=== PATIENT | female | born 1960 | race Caucasian/White ===

== ENCOUNTER → 2022-10-18 | Outpatient (CLI) | payer MEDICARE, MEDICAID ==
[~2022-10-18] MED LIST: CALC-176 PO; CIDA500T2 PO; DULO1CAP5; FURO20TA2; GABA-282; HYDR-3716; HYDR200T3; LEVO175T2; LISI5TAB11; VITA500045 PO
== END ==
LOC: M PAIN 08:00
PROVIDERS: ATTEND Nurse Practitioner Family
DX: M54.42 Lumbago with sciatica, left side (principal); G89.29 Other chronic pain; R73.03 Prediabetes; I10 Essential (primary) hypertension; M06.9 Rheumatoid arthritis, unspecified; K21.9 Gastro-esophageal reflux disease without esophagitis; M79.7 Fibromyalgia; J44.9 Chronic obstructive pulmonary disease, unspecified; G47.30 Sleep apnea, unspecified; E03.9 Hypothyroidism, unspecified; Z86.59 Personal history of other mental and behavioral disorders; Z87.891 Personal history of nicotine dependence; Z88.1 Allergy status to other antibiotic agents; Z88.6 Allergy status to analgesic agent; Z88.8 Allergy status to other drugs, medicaments and biological substances; E66.01 Morbid (severe) obesity due to excess calories; Z68.44 Body mass index [BMI] 60.0-69.9, adult; Z79.890 Hormone replacement therapy; Z79.899 Other long term (current) drug therapy

== ENCOUNTER → 2022-11-25 | Outpatient (CLI) | payer MEDICARE, MEDICAID | LOC: M PAIN 08:45 | PROVIDERS: ATTEND Nurse Practitioner Family | DX: M47.816 Spondylosis without myelopathy or radiculopathy, lumbar region (principal); M46.1 Sacroiliitis, not elsewhere classified; G89.29 Other chronic pain; I10 Essential (primary) hypertension; M06.9 Rheumatoid arthritis, unspecified; K21.9 Gastro-esophageal reflux disease without esophagitis; M79.7 Fibromyalgia; J44.9 Chronic obstructive pulmonary disease, unspecified; G47.30 Sleep apnea, unspecified; E03.9 Hypothyroidism, unspecified; Z86.59 Personal history of other mental and behavioral disorders; Z87.891 Personal history of nicotine dependence; Z88.1 Allergy status to other antibiotic agents; Z88.6 Allergy status to analgesic agent; Z88.8 Allergy status to other drugs, medicaments and biological substances; E66.01 Morbid (severe) obesity due to excess calories; Z68.44 Body mass index [BMI] 60.0-69.9, adult; Z79.51 Long term (current) use of inhaled steroids; Z79.890 Hormone replacement therapy; Z79.899 Other long term (current) drug therapy ==

== ENCOUNTER → 2023-01-30 | Outpatient (CLI) | payer MEDICARE, MEDICAID ==
[~2023-01-30] MED LIST changes: -HYDR200T3; +HYDR200T46
== END ==
LOC: M PLARAD 10:16
PROVIDERS: ATTEND Nurse Practitioner Family
DX: M54.40 Lumbago with sciatica, unspecified side (principal); M46.1 Sacroiliitis, not elsewhere classified

== ENCOUNTER → 2023-02-13 | Outpatient (CLI) | payer MEDICARE, MEDICAID | LOC: M PAIN 09:15 | PROVIDERS: ATTEND Nurse Practitioner Family | DX: M79.10 Myalgia, unspecified site (principal); G89.29 Other chronic pain; G47.30 Sleep apnea, unspecified; I10 Essential (primary) hypertension; M06.9 Rheumatoid arthritis, unspecified; K21.9 Gastro-esophageal reflux disease without esophagitis; M79.7 Fibromyalgia; J44.9 Chronic obstructive pulmonary disease, unspecified; E03.9 Hypothyroidism, unspecified; Z87.891 Personal history of nicotine dependence; Z88.1 Allergy status to other antibiotic agents; Z88.6 Allergy status to analgesic agent; Z88.8 Allergy status to other drugs, medicaments and biological substances; E66.01 Morbid (severe) obesity due to excess calories; Z68.41 Body mass index [BMI] 40.0-44.9, adult; Z79.890 Hormone replacement therapy; Z79.899 Other long term (current) drug therapy ==

== ENCOUNTER → 2023-02-19 | Outpatient (CLI) | payer MEDICARE, MEDICAID ==
[2023-02-19 13:07] LABS: URIC ACID 6.4 MG/DL (3.1-7.8)
[2023-02-19 13:08] LABS: BASO # 0.1 10^3/uL (0.0-0.2); BASO % 0.7 % (0.0-1.0); EOS # 0.2 10^3/uL (0.0-0.5); EOS % 2.3 % (0.0-3.0); HEMATOCRIT 41.9 % (36.0-47.0); HEMOGLOBIN 13.3 g/dl (12.0-15.5); LYMPH # 2.2 10^3/uL (1.5-5.0); LYMPH % 26.7 % (24.0-44.0); MEAN CORPUSCULAR HEMOGLOBIN 27.9 pg (27.0-33.0); MEAN CORPUSCULAR HGB CONC 31.7 g/dl (32.0-36.5); MEAN CORPUSCULAR VOLUME 87.8 fl (80.0-96.0); MONO # 0.8 10^3/uL (0.0-0.8); MONO % 9.3 % (2.0-8.0); NEUTROPHILS % 60.6 % (36.0-66.0); PLATELET COUNT, AUTOMATED 308 10^3/uL (150-450); RED BLOOD COUNT 4.77 10^6/uL (4.00-5.40); WHITE BLOOD COUNT 8.3 10^3/uL (4.0-10.0)
[2023-02-19 13:10] LABS: C REACTIVE PROTEIN QUANTITATIV 0.6 MG/DL (<1.0)
[2023-02-19 13:11] LABS: BILIRUBIN,TOTAL 0.6 MG/DL (0.3-1.2); CALCIUM LEVEL 9.7 MG/DL (8.3-10.6); CREATININE FOR GFR 1.01 MG/DL (0.55-1.30); GLOMERULAR FILTRATION RATE 58.7 (>45); POTASSIUM SERUM 4.7 MMOL/L (3.5-5.1); RHEUMATOID FACTOR QUANT 4.7 IU/ML (<14)
[2023-02-19 13:33] LABS: ERYTHROCYTE SEDIMENTATION RATE 42 mm/hr (0-30)
[2023-02-20 10:29] LABS: DRVV SCREEN 38.7 SECONDS
[2023-02-20 10:33] LABS: PTT LUPUS TYPE ANTICOAG SCREEN 0.98 (0-1.20)
[2023-02-24 13:08] LABS: ANA (HEP2) Negative (.); ANTI DS-DNA AB Negative (Negative)
== END ==
LOC: M PLALAB 09:01
PROVIDERS: ATTEND Nurse Practitioner Family
DX: M35.3 Polymyalgia rheumatica (principal); L40.53 Psoriatic spondylitis

== ENCOUNTER → 2023-03-12 | Outpatient (CLI) | payer MEDICARE, MEDICAID | LOC: M PLAIMG 14:42 | PROVIDERS: ATTEND Physician Assistant | DX: M85.88 Other specified disorders of bone density and structure, other site (principal); M47.816 Spondylosis without myelopathy or radiculopathy, lumbar region ==

== ENCOUNTER → 2023-03-17 | Outpatient (CLI) | payer MEDICARE, MEDICAID | LOC: M PAIN 08:30 | PROVIDERS: ATTEND Anesthesiology | DX: M79.18 Myalgia, other site (principal); G89.29 Other chronic pain; G47.30 Sleep apnea, unspecified; I10 Essential (primary) hypertension; M06.9 Rheumatoid arthritis, unspecified; K21.9 Gastro-esophageal reflux disease without esophagitis; M79.7 Fibromyalgia; J44.9 Chronic obstructive pulmonary disease, unspecified; E03.9 Hypothyroidism, unspecified; Z86.59 Personal history of other mental and behavioral disorders; Z87.891 Personal history of nicotine dependence; Z88.1 Allergy status to other antibiotic agents; Z88.6 Allergy status to analgesic agent; Z88.8 Allergy status to other drugs, medicaments and biological substances; E66.01 Morbid (severe) obesity due to excess calories; Z68.41 Body mass index [BMI] 40.0-44.9, adult; Z79.890 Hormone replacement therapy; Z79.899 Other long term (current) drug therapy | CPT/HCPCS: 20552; J0665 ==

== ENCOUNTER → 2023-03-27 | Outpatient (CLI) | payer MEDICARE, MEDICAID | LOC: M WHC 13:27 | PROVIDERS: ATTEND Physician Assistant | DX: M81.0 Age-related osteoporosis without current pathological fracture (principal) ==

== ENCOUNTER → 2023-04-17 | Outpatient (CLI) | payer MEDICARE, MEDICAID | LOC: M PAIN 09:30 | PROVIDERS: ATTEND Nurse Practitioner Family | DX: M47.816 Spondylosis without myelopathy or radiculopathy, lumbar region (principal); M79.10 Myalgia, unspecified site; G89.29 Other chronic pain; Z80.1 Family history of malignant neoplasm of trachea, bronchus and lung; Z87.891 Personal history of nicotine dependence; Z88.6 Allergy status to analgesic agent; Z88.8 Allergy status to other drugs, medicaments and biological substances; E66.01 Morbid (severe) obesity due to excess calories; Z68.41 Body mass index [BMI] 40.0-44.9, adult; Z79.899 Other long term (current) drug therapy ==

== ENCOUNTER → 2023-04-21 | Outpatient (CLI) | payer MEDICARE, MEDICAID | LOC: M PAIN 08:30 | PROVIDERS: ATTEND Anesthesiology | DX: M47.816 Spondylosis without myelopathy or radiculopathy, lumbar region (principal); G89.29 Other chronic pain; Z80.1 Family history of malignant neoplasm of trachea, bronchus and lung; Z87.891 Personal history of nicotine dependence; Z88.6 Allergy status to analgesic agent; Z88.8 Allergy status to other drugs, medicaments and biological substances; E66.01 Morbid (severe) obesity due to excess calories; Z68.41 Body mass index [BMI] 40.0-44.9, adult; Z79.899 Other long term (current) drug therapy | CPT/HCPCS: 76000; G0463 ==

== ENCOUNTER 2023-05-01 16:39 | Emergency (ER) | payer MEDICARE, MEDICAID ==
[~2023-05-01] VITALS: Ht 167.6 cm; Wt 124.2 kg
[2023-05-01] MEDS ORDERED: IPRATROPIUM 0.5MG/ALBUTEROL 2.5MG INH SOL UD 3ML (DUONEB) NEB ONE (17:25)
[2023-05-01] MEDS ORDERED: CYAN1000VL (18:16)
[2023-05-01] MEDS ORDERED: TORS20TA2 (18:16)
[2023-05-01 18:21] LABS: VENOUS BASE EXCESS 3.2 (-2.0-2.0); VENOUS HCO3 28.3 MMOL/L (23.0-27.0); VENOUS O2 SATURATION 80.4 % (60.0-80.0); VENOUS PARTIAL PRESSURE CO2 44.7 mmHg (38.0-50.0); VENOUS PARTIAL PRESSURE O2 41.8 mmHg (30.0-50.0); VENOUS PH 7.419 UNITS (7.330-7.430); VENOUS STANDARD HCO3 26.9 MMOL/L; VENOUS TOTAL CO2 29.7 MMOL/L (24.0-28.0)
[2023-05-01 18:38] LABS: BASO # 0.1 10^3/uL (0.0-0.2); BASO % 0.5 % (0.0-1.0); EOS # 0.2 10^3/uL (0.0-0.5); EOS % 2.1 % (0.0-3.0); HEMATOCRIT 41.9 % (36.0-47.0); HEMOGLOBIN 13.4 g/dl (12.0-15.5); LYMPH # 2.3 10^3/uL (1.5-5.0); LYMPH % 22.1 % (24.0-44.0); MEAN CORPUSCULAR HEMOGLOBIN 28.8 pg (27.0-33.0); MEAN CORPUSCULAR VOLUME 89.9 fl (80.0-96.0); MONO # 0.8 10^3/uL (0.0-0.8); MONO % 8.1 % (2.0-8.0); NEUTROPHILS % 66.9 % (36.0-66.0); PLATELET COUNT, AUTOMATED 349 10^3/uL (150-450); RED BLOOD COUNT 4.66 10^6/uL (4.00-5.40); WHITE BLOOD COUNT 10.4 10^3/uL (4.0-10.0)
[2023-05-01 19:00] LABS: CPK CREATINE PHOSPHOKINASE 127 U/L (34-145)
[2023-05-01 19:01] LABS: ALBUMIN 4.2 G/DL (3.2-5.2); ALKALINE PHOSPHATASE 170 U/L (46-116); ALT/SGPT 37 U/L (7.0-40); AST/SGOT 26 U/L (<34); BILIRUBIN,DIRECT 0.2 MG/DL (<0.4); BILIRUBIN,TOTAL 0.6 MG/DL (0.3-1.2); BLOOD UREA NITROGEN 17 MG/DL (9-23); CALCIUM LEVEL 10.2 MG/DL (8.3-10.6); CARBON DIOXIDE LEVEL 29 MMOL/L (20-31); CHLORIDE LEVEL 101 MMOL/L (98-107); CK-MB VALUE MASS < 1.0 NG/ML (<3.6); CREATININE FOR GFR 0.96 MG/DL (0.55-1.30); GLOMERULAR FILTRATION RATE > 60.0 (>45); GLUCOSE, FASTING 96 MG/DL (74-106); MB/CK RELATIVE INDEX 0.78 (< OR =4); SODIUM LEVEL 141 MMOL/L (136-145); TOTAL PROTEIN 7.4 G/DL (5.7-8.2)
[2023-05-01 19:02] LABS: THYROID STIMULATING HORMONE 1.107 uIU/ML (0.55-4.78); THYROXINE (T4) 12.6 UG/DL (4.5-10.9)
[2023-05-01] MEDS ORDERED: ISOVUE-370 76% 100ML VIAL As Ordered ONE (19:02)
[2023-05-01 20:33] LABS: MB/CK RELATIVE INDEX 0.97 (< OR =4)
[2023-05-01 21:38] VITALS: BP 163/83; TEMP 98; O2SAT 94
== END 2023-05-01 21:40 | disposition home or self-care (01) ==
LOC: M ED 16:39
DX: I49.3 Ventricular premature depolarization (principal); I10 Essential (primary) hypertension; G47.33 Obstructive sleep apnea (adult) (pediatric); J45.909 Unspecified asthma, uncomplicated; J44.9 Chronic obstructive pulmonary disease, unspecified; M54.50 Low back pain, unspecified; Z87.891 Personal history of nicotine dependence; Z88.1 Allergy status to other antibiotic agents; Z88.6 Allergy status to analgesic agent; Z88.8 Allergy status to other drugs, medicaments and biological substances; Z79.811 Long term (current) use of aromatase inhibitors; Z79.891 Long term (current) use of opiate analgesic; Z79.899 Other long term (current) drug therapy
CPT/HCPCS: 36415; 71045; 71275; 80048; 80076; 82550; 82553; 82803; 83735; 83880; 84436; 84443; 84484; 85025; 87486; 87581; 87633; 87798; 93005; 93041; 94640; 94760; 99284; Q9967

== ENCOUNTER → 2023-05-06 | Outpatient (CLI) | payer MEDICARE, MEDICAID ==
[~2023-05-06] MED LIST changes: +CYAN1000VL; +TORS20TA2
[2023-05-06 14:37] LABS: ALBUMIN 3.9 G/DL (3.2-5.2); BLOOD UREA NITROGEN 18 MG/DL (9-23); CALCIUM LEVEL 9.5 MG/DL (8.3-10.6); CARBON DIOXIDE LEVEL 30 MMOL/L (20-31); CHLORIDE LEVEL 103 MMOL/L (98-107); CREATININE FOR GFR 0.87 MG/DL (0.55-1.30); GLOMERULAR FILTRATION RATE > 60.0 (>45); GLUCOSE, FASTING 115 MG/DL (74-106); MAGNESIUM LEVEL 2.1 MG/DL (1.8-2.4); PHOSPHORUS LEVEL 3.3 MG/DL (2.4-5.1); POTASSIUM SERUM 4.3 MMOL/L (3.5-5.1); SODIUM LEVEL 142 MMOL/L (136-145)
[2023-05-06 14:38] LABS: FERRITIN 23.4 NG/ML (7.3-270.7); THYROID STIMULATING HORMONE 1.741 uIU/ML (0.55-4.78)
[2023-05-06 14:39] LABS: FREE T4 1.11 NG/DL (0.89-1.76); TOTAL 25(OH) VITAMIN D 34.7 NG/ML (20.0-100.0); VITAMIN B12 LEVEL 813 PG/ML (211-911)
== END ==
LOC: M PLALAB 11:28
PROVIDERS: ATTEND Physician Assistant
DX: R00.2 Palpitations (principal); R07.89 Other chest pain; R06.02 Shortness of breath; J44.9 Chronic obstructive pulmonary disease, unspecified; Z79.899 Other long term (current) drug therapy; Z86.39 Personal history of other endocrine, nutritional and metabolic disease

== ENCOUNTER → 2023-07-11 | Outpatient (CLI) | payer MEDICARE, MEDICAID ==
[~2023-07-11] MED LIST changes: +ISOVUE-M 300 61% 15ML VIAL As Ordered ONE; +LIDOCAINE 1% SDV 30ML VIAL As Ordered ONE
== END ==
LOC: M PAIN 08:30
PROVIDERS: ATTEND Anesthesiology
DX: M47.816 Spondylosis without myelopathy or radiculopathy, lumbar region (principal); G89.29 Other chronic pain; M54.50 Low back pain, unspecified; I10 Essential (primary) hypertension; M06.9 Rheumatoid arthritis, unspecified; K21.9 Gastro-esophageal reflux disease without esophagitis; M79.7 Fibromyalgia; J44.9 Chronic obstructive pulmonary disease, unspecified; E03.9 Hypothyroidism, unspecified; Z87.891 Personal history of nicotine dependence; Z79.890 Hormone replacement therapy; Z79.899 Other long term (current) drug therapy; Z88.6 Allergy status to analgesic agent; Z88.8 Allergy status to other drugs, medicaments and biological substances
CPT/HCPCS: 64493; 64494; J0665; Q9967

== ENCOUNTER → 2023-08-01 | Outpatient (CLI) | payer MEDICARE, MEDICAID ==
[~2023-08-01] MED LIST changes: -ISOVUE-M 300 61% 15ML VIAL As Ordered ONE; -LIDOCAINE 1% SDV 30ML VIAL As Ordered ONE
== END ==
LOC: M PAIN 17:00
PROVIDERS: ATTEND Nurse Practitioner Family
DX: M47.816 Spondylosis without myelopathy or radiculopathy, lumbar region (principal); M47.817 Spondylosis without myelopathy or radiculopathy, lumbosacral region; M54.6 Pain in thoracic spine; G89.29 Other chronic pain; I10 Essential (primary) hypertension; M06.9 Rheumatoid arthritis, unspecified; K21.9 Gastro-esophageal reflux disease without esophagitis; M79.7 Fibromyalgia; F41.9 Anxiety disorder, unspecified; F32.A Depression, unspecified; J44.9 Chronic obstructive pulmonary disease, unspecified; J45.909 Unspecified asthma, uncomplicated; Z87.891 Personal history of nicotine dependence; Z79.899 Other long term (current) drug therapy; Z88.6 Allergy status to analgesic agent; Z88.8 Allergy status to other drugs, medicaments and biological substances

== ENCOUNTER → 2023-09-01 | Outpatient (CLI) | payer MEDICARE, MEDICAID ==
[2023-09-01 11:15] LABS: BASO % 0.5 % (0.0-1.0); EOS # 0.2 10^3/uL (0.0-0.5); EOS % 2.2 % (0.0-3.0); HEMATOCRIT 44.3 % (36.0-47.0); LYMPH # 2.2 10^3/uL (1.5-5.0); MEAN CORPUSCULAR HEMOGLOBIN 28.2 pg (27.0-33.0); MEAN CORPUSCULAR HGB CONC 31.6 g/dl (32.0-36.5); MEAN CORPUSCULAR VOLUME 89.3 fl (80.0-96.0); MONO # 0.6 10^3/uL (0.0-0.8); MONO % 7.3 % (2.0-8.0); NEUTROPHILS # 5.3 10^3/uL (1.5-8.5); NEUTROPHILS % 63.8 % (36.0-66.0); PLATELET COUNT, AUTOMATED 336 10^3/uL (150-450); RED BLOOD COUNT 4.96 10^6/uL (4.00-5.40); WHITE BLOOD COUNT 8.4 10^3/uL (4.0-10.0)
[2023-09-01 11:25] LABS: ERYTHROCYTE SEDIMENTATION RATE 47 mm/hr (0-30)
[2023-09-01 11:45] LABS: URIC ACID 5.6 MG/DL (3.1-7.8)
[2023-09-01 11:48] LABS: ALBUMIN 3.9 G/DL (3.2-5.2); ALKALINE PHOSPHATASE 144 U/L (46-116); ALT/SGPT 26 U/L (7.0-40); AST/SGOT 20 U/L (<34); BILIRUBIN,TOTAL 0.6 MG/DL (0.3-1.2); BLOOD UREA NITROGEN 18 MG/DL (9-23); CALCIUM LEVEL 9.8 MG/DL (8.3-10.6); CARBON DIOXIDE LEVEL 30 MMOL/L (20-31); CHLORIDE LEVEL 107 MMOL/L (98-107); CHOLESTEROL LEVEL 165 MG/DL (<200); CHOLESTEROL RISK RATIO 3.21 (<5); CREATININE FOR GFR 0.91 MG/DL (0.55-1.30); GLOMERULAR FILTRATION RATE > 60.0 (>45); GLUCOSE, FASTING 110 MG/DL (74-106); HDL CHOLESTEROL 51.3 MG/DL (>40); LDL CHOLESTEROL 85.7 MG/DL (<100); NON-HDL-C 113.7 MG/DL; POTASSIUM SERUM 4.1 MMOL/L (3.5-5.1); SODIUM LEVEL 141 MMOL/L (136-145); TRIGLYCERIDES LEVEL 140 MG/DL (<150)
== END ==
LOC: M LAB 10:10
PROVIDERS: ATTEND Physician Assistant
DX: M47.814 Spondylosis without myelopathy or radiculopathy, thoracic region (principal); E78.5 Hyperlipidemia, unspecified; L40.50 Arthropathic psoriasis, unspecified; Z13.1 Encounter for screening for diabetes mellitus; Z79.899 Other long term (current) drug therapy

== ENCOUNTER → 2023-09-01 | Outpatient (CLI) | payer MEDICARE, MEDICAID | LOC: M RAD 10:11 | PROVIDERS: ATTEND Nurse Practitioner Family | DX: M47.814 Spondylosis without myelopathy or radiculopathy, thoracic region (principal) ==

== ENCOUNTER → 2023-09-26 | Outpatient (CLI) | payer MEDICARE, MEDICAID ==
[~2023-09-26] MED LIST changes: +ISOVUE-M 300 61% 15ML VIAL As Ordered ONE; +LIDOCAINE 1% SDV 30ML VIAL As Ordered ONE
== END ==
LOC: M PAIN 13:00
PROVIDERS: ATTEND Anesthesiology
DX: M47.816 Spondylosis without myelopathy or radiculopathy, lumbar region (principal)
CPT/HCPCS: 64493; 64494; J0665; Q9967

== ENCOUNTER → 2023-10-28 | Outpatient (CLI) | payer MEDICARE, MEDICAID ==
[~2023-10-28] MED LIST changes: -ISOVUE-M 300 61% 15ML VIAL As Ordered ONE; -LIDOCAINE 1% SDV 30ML VIAL As Ordered ONE
== END ==
LOC: M CARPUL 07:44
PROVIDERS: ATTEND Nurse Practitioner Adult Health
DX: R06.02 Shortness of breath (principal)

== ENCOUNTER → 2023-10-31 | Outpatient (CLI) | payer MEDICARE, MEDICAID | LOC: M PAIN 11:45 | PROVIDERS: ATTEND Nurse Practitioner Family | DX: M47.817 Spondylosis without myelopathy or radiculopathy, lumbosacral region (principal); M47.816 Spondylosis without myelopathy or radiculopathy, lumbar region; G89.29 Other chronic pain; M54.50 Low back pain, unspecified; I10 Essential (primary) hypertension; M06.9 Rheumatoid arthritis, unspecified; K21.9 Gastro-esophageal reflux disease without esophagitis; M79.7 Fibromyalgia; F41.9 Anxiety disorder, unspecified; F32.A Depression, unspecified; K76.0 Fatty (change of) liver, not elsewhere classified; R91.8 Other nonspecific abnormal finding of lung field; J44.9 Chronic obstructive pulmonary disease, unspecified; E03.9 Hypothyroidism, unspecified; J45.909 Unspecified asthma, uncomplicated; Z87.891 Personal history of nicotine dependence; Z79.890 Hormone replacement therapy; Z79.899 Other long term (current) drug therapy; Z88.6 Allergy status to analgesic agent; Z88.8 Allergy status to other drugs, medicaments and biological substances ==

== ENCOUNTER → 2023-12-06 | Outpatient (CLI) | payer MEDICAID, MEDICARE ==
[2023-12-06 10:07] LABS: APPEARANCE, URINE HAZY (CLEAR); BACTERIA, URINE AUTO 1+ (NEGATIVE); BILIRUBIN, URINE AUTO NEGATIVE (NEGATIVE); BLOOD, URINE BLOOD NEGATIVE (NEGATIVE); COLOR, URINE AMBER (YELLOW); GLUCOSE, URINE (UA) AUTO NEGATIVE (NEGATIVE); KETONE, URINE AUTO NEGATIVE (NEGATIVE); LEUKOCYTE ESTERASE, URINE AUTO 1+ (NEGATIVE); MUCUS, URINE SMALL (NEGATIVE); NITRITE, URINE AUTO NEGATIVE (NEGATIVE); PROTEIN, URINE AUTO 1+ mg/dL (NEGATIVE); RBC, URINE AUTO 1 /HPF (0-3); SPECIFIC GRAVITY URINE AUTO 1.027 (1.002-1.035); SQUAMOUS EPITHELIAL CELL UR AU 8 /HPF (0-6); WBC, URINE AUTO 5 /HPF (0-3)
[2023-12-06 10:09] LABS: BASO % 0.7 % (0.0-1.0); EOS # 0.2 10^3/uL (0.0-0.5); EOS % 3.3 % (0.0-3.0); HEMATOCRIT 39.7 % (36.0-47.0); HEMOGLOBIN 12.7 g/dl (12.0-15.5); LYMPH # 1.5 10^3/uL (1.5-5.0); LYMPH % 25.4 % (24.0-44.0); MEAN CORPUSCULAR HEMOGLOBIN 29.3 pg (27.0-33.0); MEAN CORPUSCULAR VOLUME 91.5 fl (80.0-96.0); MONO # 0.6 10^3/uL (0.0-0.8); MONO % 10.1 % (2.0-8.0); NEUTROPHILS # 3.5 10^3/uL (1.5-8.5); NEUTROPHILS % 60.3 % (36.0-66.0); PLATELET COUNT, AUTOMATED 282 10^3/uL (150-450); RED BLOOD COUNT 4.34 10^6/uL (4.00-5.40); WHITE BLOOD COUNT 5.8 10^3/uL (4.0-10.0)
[2023-12-06 10:33] LABS: FREE T4 1.04 NG/DL (0.89-1.76)
[2023-12-06 10:34] LABS: ALBUMIN 3.4 G/DL (3.2-5.2); BILIRUBIN,TOTAL 0.7 MG/DL (0.3-1.2); CALCIUM LEVEL 9.3 MG/DL (8.3-10.6); CHOLESTEROL RISK RATIO 3.2 (<5); CREATININE FOR GFR 0.99 MG/DL (0.55-1.30); GLOMERULAR FILTRATION RATE 59.9 (>45); HDL CHOLESTEROL 45.5 MG/DL (>40); LDL CHOLESTEROL 66.5 MG/DL (<100); NON-HDL-C 100.5 MG/DL; POTASSIUM SERUM 4.3 MMOL/L (3.5-5.1); THYROID STIMULATING HORMONE 0.626 uIU/ML (0.55-4.78); TOTAL PROTEIN 6.1 G/DL (5.7-8.2)
== END ==
LOC: M LAB 09:10
PROVIDERS: ATTEND Internal Medicine
DX: E03.9 Hypothyroidism, unspecified (principal); E78.00 Pure hypercholesterolemia, unspecified

== ENCOUNTER → 2023-12-30 | Outpatient (CLI) | payer MEDICARE, MEDICAID ==
[~2023-12-30] MED LIST changes: +METHACHOLINE KIT (6 VIAL.NEB PREMIX) INH ONE
== END ==
LOC: M CARPUL 12-11 09:28
PROVIDERS: ATTEND Nurse Practitioner Adult Health
DX: R06.02 Shortness of breath (principal)
CPT/HCPCS: 94070; 95070; J7674

== ENCOUNTER 2024-03-12 14:48 | Emergency (ER) | payer MEDICARE, MEDICAID ==
[~2024-03-12] VITALS: Ht 165.1 cm; Wt 127.3 kg
[~2024-03-12 14:48] MED LIST changes: -LIDOCAINE 1% SDV 30ML VIAL As Ordered ONE; -NORCO, ANEXSIA 5/325MG TABLET (HYDROcodone/ACETAMINOPHEN) As Ordered ONE; -dexAMETHasone 10MG/1ML VIAL PRES.FREE As Ordered ONE
[2024-03-12 15:14] VITALS: TEMP 98.6
[2024-03-12 15:42] LABS: BASO # 0.1 10^3/uL (0.0-0.2); BASO % 0.6 % (0.0-1.0); EOS # 0.2 10^3/uL (0.0-0.5); EOS % 2.1 % (0.0-3.0); HEMOGLOBIN 13.1 g/dl (12.0-15.5); LYMPH # 1.6 10^3/uL (1.5-5.0); LYMPH % 17.5 % (24.0-44.0); MEAN CORPUSCULAR HEMOGLOBIN 28.5 pg (27.0-33.0); MEAN CORPUSCULAR VOLUME 89.3 fl (80.0-96.0); MONO # 0.6 10^3/uL (0.0-0.8); NEUTROPHILS # 6.6 10^3/uL (1.5-8.5); NEUTROPHILS % 72.5 % (36.0-66.0); PLATELET COUNT, AUTOMATED 303 10^3/uL (150-450); RED BLOOD COUNT 4.59 10^6/uL (4.00-5.40); WHITE BLOOD COUNT 9.1 10^3/uL (4.0-10.0)
[2024-03-12 15:55] LABS: INR 0.99; PARTIAL THROMBOPLASTIN TIME 23.8 SECONDS (24.8-34.2); PROTHROMBIN TIME 12.8 SECONDS (12.5-14.5)
[2024-03-12 16:02] LABS: ALBUMIN 3.6 G/DL (3.2-5.2); ALKALINE PHOSPHATASE 176 U/L (46-116); ALT/SGPT 23 U/L (7.0-40); AST/SGOT 24 U/L (<34); BILIRUBIN,DIRECT 0.2 MG/DL (<0.4); BILIRUBIN,TOTAL 0.6 MG/DL (0.3-1.2); BLOOD UREA NITROGEN 19 MG/DL (9-23); CARBON DIOXIDE LEVEL 28 MMOL/L (20-31); CHLORIDE LEVEL 105 MMOL/L (98-107); CK-MB VALUE MASS < 1.0 NG/ML (<3.6); CREATININE FOR GFR 0.88 MG/DL (0.55-1.30); GLOMERULAR FILTRATION RATE > 60.0 (>45); GLUCOSE, FASTING 175 MG/DL (74-106); POTASSIUM SERUM 4.2 MMOL/L (3.5-5.1); SODIUM LEVEL 138 MMOL/L (136-145); TOTAL PROTEIN 6.6 G/DL (5.7-8.2)
[2024-03-12 16:03] LABS: THYROID STIMULATING HORMONE 2.861 uIU/ML (0.55-4.78)
[2024-03-12 16:04] LABS: FREE T4 1.07 NG/DL (0.89-1.76)
[2024-03-12 16:23] LABS: CPK CREATINE PHOSPHOKINASE 131 U/L (34-145); MB/CK RELATIVE INDEX 0.76 (< OR =4)
[2024-03-12 17:02] LABS: CPK CREATINE PHOSPHOKINASE 123 U/L (34-145)
[2024-03-12 17:06] LABS: CK-MB VALUE MASS < 1.0 NG/ML (<3.6); MB/CK RELATIVE INDEX 0.81 (< OR =4)
[2024-03-12 17:45] VITALS: BP 169/73; O2SAT 93
== END 2024-03-12 18:14 | disposition home or self-care (01) ==
LOC: M ED 14:48
DX: R55 Syncope and collapse (principal); I45.81 Long QT syndrome; I49.3 Ventricular premature depolarization; I10 Essential (primary) hypertension; M54.50 Low back pain, unspecified; F41.9 Anxiety disorder, unspecified; F32.A Depression, unspecified; K76.0 Fatty (change of) liver, not elsewhere classified; R91.1 Solitary pulmonary nodule; J44.9 Chronic obstructive pulmonary disease, unspecified; G47.33 Obstructive sleep apnea (adult) (pediatric); M79.7 Fibromyalgia; K21.9 Gastro-esophageal reflux disease without esophagitis; Z87.891 Personal history of nicotine dependence; Z88.1 Allergy status to other antibiotic agents; Z88.6 Allergy status to analgesic agent; Z88.8 Allergy status to other drugs, medicaments and biological substances; Z79.811 Long term (current) use of aromatase inhibitors; Z79.899 Other long term (current) drug therapy; M47.816 Spondylosis without myelopathy or radiculopathy, lumbar region; G89.29 Other chronic pain
CPT/HCPCS: 36415; 64635; 71045; 80048; 80076; 82550; 82553; 84439; 84443; 84484; 85025; 85610; 85730; 93005; 93041; 94760; 99285; J0665; J1100

== ENCOUNTER → 2024-03-12 | Outpatient (CLI) | payer MEDICARE, MEDICAID ==
[~2024-03-12] MED LIST changes: +LIDOCAINE 1% SDV 30ML VIAL As Ordered ONE; -METHACHOLINE KIT (6 VIAL.NEB PREMIX) INH ONE; +NORCO, ANEXSIA 5/325MG TABLET (HYDROcodone/ACETAMINOPHEN) As Ordered ONE; +dexAMETHasone 10MG/1ML VIAL PRES.FREE As Ordered ONE
== END ==
LOC: M PAIN 11:00
PROVIDERS: ATTEND Anesthesiology
DX: M47.816 Spondylosis without myelopathy or radiculopathy, lumbar region (principal); M54.50 Low back pain, unspecified; G89.29 Other chronic pain; I10 Essential (primary) hypertension; M06.9 Rheumatoid arthritis, unspecified; K21.9 Gastro-esophageal reflux disease without esophagitis; M79.7 Fibromyalgia; F41.9 Anxiety disorder, unspecified; F32.A Depression, unspecified; K76.0 Fatty (change of) liver, not elsewhere classified; J44.9 Chronic obstructive pulmonary disease, unspecified; G47.30 Sleep apnea, unspecified; E03.9 Hypothyroidism, unspecified; J45.909 Unspecified asthma, uncomplicated; Z87.891 Personal history of nicotine dependence; Z79.890 Hormone replacement therapy; Z79.899 Other long term (current) drug therapy; Z88.6 Allergy status to analgesic agent; Z88.8 Allergy status to other drugs, medicaments and biological substances

== ENCOUNTER → 2024-03-25 | Outpatient (CLI) | payer MEDICARE, MEDICAID | LOC: M PAIN 14:30 | PROVIDERS: ATTEND Anesthesiology | DX: M47.816 Spondylosis without myelopathy or radiculopathy, lumbar region (principal); G89.29 Other chronic pain; M54.50 Low back pain, unspecified; I10 Essential (primary) hypertension; M06.9 Rheumatoid arthritis, unspecified; K21.9 Gastro-esophageal reflux disease without esophagitis; M79.7 Fibromyalgia; F41.9 Anxiety disorder, unspecified; F32.A Depression, unspecified; M19.90 Unspecified osteoarthritis, unspecified site; K76.0 Fatty (change of) liver, not elsewhere classified; J44.9 Chronic obstructive pulmonary disease, unspecified; R91.8 Other nonspecific abnormal finding of lung field; G47.30 Sleep apnea, unspecified; E03.9 Hypothyroidism, unspecified; J45.909 Unspecified asthma, uncomplicated; Z87.891 Personal history of nicotine dependence; Z79.890 Hormone replacement therapy; Z79.899 Other long term (current) drug therapy; Z88.6 Allergy status to analgesic agent; Z88.8 Allergy status to other drugs, medicaments and biological substances ==

== ENCOUNTER → 2024-06-21 | Outpatient (CLI) | payer MEDICARE, MEDICAID ==
[~2024-06-21] MED LIST changes: +GABA-1172; -GABA-282
== END ==
LOC: M RAD 14:09
PROVIDERS: ATTEND Nurse Practitioner Adult Health
DX: Z87.891 Personal history of nicotine dependence (principal)

== ENCOUNTER → 2024-06-24 | Outpatient (REF) | payer MEDICARE, MEDICAID ==
[2024-06-24 13:45] LABS: BASO # 0.1 10^3/uL (0.0-0.2); BASO % 0.9 % (0.0-1.0); EOS # 0.2 10^3/uL (0.0-0.5); EOS % 3.1 % (0.0-3.0); HEMATOCRIT 41.8 % (36.0-47.0); HEMOGLOBIN 12.9 g/dl (12.0-15.5); LYMPH # 1.9 10^3/uL (1.5-5.0); LYMPH % 33.1 % (24.0-44.0); MEAN CORPUSCULAR HEMOGLOBIN 27.4 pg (27.0-33.0); MEAN CORPUSCULAR HGB CONC 30.9 g/dl (32.0-36.5); MEAN CORPUSCULAR VOLUME 88.7 fl (80.0-96.0); MONO # 0.6 10^3/uL (0.0-0.8); MONO % 10.8 % (2.0-8.0); NEUTROPHILS # 3.1 10^3/uL (1.5-8.5); NEUTROPHILS % 51.9 % (36.0-66.0); PLATELET COUNT, AUTOMATED 281 10^3/uL (150-450); RED BLOOD COUNT 4.71 10^6/uL (4.00-5.40); WHITE BLOOD COUNT 5.9 10^3/uL (4.0-10.0)
[2024-06-24 13:55] LABS: ERYTHROCYTE SEDIMENTATION RATE 38 mm/hr (0-30)
[2024-06-24 14:14] LABS: C REACTIVE PROTEIN QUANTITATIV < 0.50 MG/DL (<1.0)
[2024-06-24 14:15] LABS: IMMUNOGLOBULIN A 214.8 MG/DL (40-350)
[2024-06-24 14:16] LABS: ALBUMIN 3.7 G/DL (3.2-5.2); ALKALINE PHOSPHATASE 131 U/L (35-104); ALT/SGPT 23 U/L (7.0-40); AST/SGOT 17 U/L (<34); BILIRUBIN,TOTAL 0.4 MG/DL (0.3-1.2); BLOOD UREA NITROGEN 22 MG/DL (9-23); CALCIUM LEVEL 9.1 MG/DL (8.3-10.6); CARBON DIOXIDE LEVEL 28 MMOL/L (20-31); CHLORIDE LEVEL 106 MMOL/L (98-107); CREATININE FOR GFR 0.88 MG/DL (0.55-1.30); GLOMERULAR FILTRATION RATE > 60.0 (>45); GLUCOSE, FASTING 141 MG/DL (74-106); IMMUNOGLOBULIN G 821 MG/DL (650-1600); POTASSIUM SERUM 4.2 MMOL/L (3.5-5.1); SODIUM LEVEL 144 MMOL/L (136-145); TOTAL PROTEIN 6.8 G/DL (5.7-8.2)
[2024-06-24 14:28] LABS: HEPATITIS B SURFACE ANTIGEN NEGATIVE (NEGATIVE)
[2024-06-24 14:49] LABS: HEPATITIS C VIRUS ABY INDEX < 0.02 INDEX (<0.8)
[2024-06-25 09:57] LABS: PROTEIN, TOTAL SO 6.9 g/dL (6.1-8.1)
[2024-06-26 11:22] LABS: HEPATITIS B CORE ANTIBODY IGG NON-REACTIVE (NON-REACTIVE)
[2024-06-27 15:12] LABS: QuantiFERON-TB Gold Plus NEGATIVE (NEGATIVE)
[2024-06-28 07:28] LABS: ALBUMIN SO 4.1 g/dL (3.8-4.8); ALPHA 1 GLOBULINS SO 0.3 g/dL (0.2-0.3); ALPHA 2 GLOBULINS SO 0.9 g/dL (0.5-0.9); BETA 2 GLOBULIN SO 0.4 g/dL (0.2-0.5); BETA GLOBULIN SO 0.5 g/dL (0.4-0.6); GAMMA GLOBULINS SO 0.8 g/dL (0.8-1.7)
== END ==
LOC: M SFHCRHEU 08:01
PROVIDERS: ATTEND Internal Medicine Rheumatology
DX: R52 Pain, unspecified (principal); R76.8 Other specified abnormal immunological findings in serum; L40.8 Other psoriasis; M15.4 Erosive (osteo)arthritis; Z79.899 Other long term (current) drug therapy; Z11.59 Encounter for screening for other viral diseases

== ENCOUNTER → 2024-07-02 | Outpatient (CLI) | payer MEDICARE, MEDICAID | LOC: M PLAIMG 09:46 → M PLALAB 09:46 | PROVIDERS: ATTEND Internal Medicine Rheumatology | DX: M46.1 Sacroiliitis, not elsewhere classified (principal); M19.041 Primary osteoarthritis, right hand; M19.042 Primary osteoarthritis, left hand; M19.071 Primary osteoarthritis, right ankle and foot; M19.072 Primary osteoarthritis, left ankle and foot; L40.8 Other psoriasis; R76.8 Other specified abnormal immunological findings in serum; R52 Pain, unspecified ==

== ENCOUNTER → 2024-07-22 | Outpatient (CLI) | payer MEDICARE, MEDICAID | LOC: M PAIN 14:30 | PROVIDERS: ATTEND Nurse Practitioner Family | DX: M47.816 Spondylosis without myelopathy or radiculopathy, lumbar region (principal); G89.29 Other chronic pain; M54.50 Low back pain, unspecified; I10 Essential (primary) hypertension; M06.9 Rheumatoid arthritis, unspecified; K21.9 Gastro-esophageal reflux disease without esophagitis; M79.7 Fibromyalgia; J44.9 Chronic obstructive pulmonary disease, unspecified; J45.909 Unspecified asthma, uncomplicated; Z87.891 Personal history of nicotine dependence; Z79.890 Hormone replacement therapy; Z79.899 Other long term (current) drug therapy; Z88.6 Allergy status to analgesic agent; Z88.8 Allergy status to other drugs, medicaments and biological substances ==

== ENCOUNTER → 2025-02-03 | Outpatient (CLI) | payer MEDICARE, MEDICAID ==
[2025-02-03 17:39] LABS: BASO # 0.0 10^3/uL (0.0-0.2); BASO % 0.5 % (0.0-1.0); EOS # 0.2 10^3/uL (0.0-0.5); EOS % 2.7 % (0.0-3.0); LYMPH # 2.4 10^3/uL (1.5-5.0); LYMPH % 32.2 % (24.0-44.0); MONO # 0.7 10^3/uL (0.0-0.8); MONO % 9.2 % (2.0-8.0); NEUTROPHILS # 4.0 10^3/uL (1.5-8.5); NEUTROPHILS % 55.1 % (36.0-66.0); PLATELET COUNT, AUTOMATED 349 10^3/uL (150-450)
[2025-02-03 17:46] LABS: ERYTHROCYTE SEDIMENTATION RATE 56 mm/hr (0-30)
[2025-02-03 17:55] LABS: ALT/SGPT 28.0 U/L (7.0-40); AST/SGOT 25.0 U/L (<34); C REACTIVE PROTEIN QUANTITATIV 1.04 MG/DL (<1.0); CALCIUM LEVEL 9.3 MG/DL (8.3-10.6); CARBON DIOXIDE LEVEL 29.0 MMOL/L (20-31); CHLORIDE LEVEL 101.0 MMOL/L (98-107); CREATININE FOR GFR 0.96 MG/DL (0.55-1.30); GLOMERULAR FILTRATION RATE 65.3 (>45); POTASSIUM SERUM 4.4 MMOL/L (3.5-5.1); SODIUM LEVEL 141.0 MMOL/L (136-145)
== END ==
LOC: M LAB 16:41
PROVIDERS: ATTEND Internal Medicine Rheumatology
DX: L40.8 Other psoriasis (principal); M15.4 Erosive (osteo)arthritis; R52 Pain, unspecified; R76.8 Other specified abnormal immunological findings in serum

== ENCOUNTER → 2025-02-04 | Outpatient (REF) | payer MEDICARE, MEDICAID | LOC: M SFHCRHEU 11:19 | PROVIDERS: ATTEND Internal Medicine Rheumatology | DX: Z53.9 Procedure and treatment not carried out, unspecified reason (principal) ==

== ENCOUNTER → 2025-02-16 | Outpatient (CLI) | payer MEDICARE, MEDICAID ==
[2025-02-16 09:09] LABS: CALCIUM LEVEL 9.2 MG/DL (8.3-10.6); CARBON DIOXIDE LEVEL 31.0 MMOL/L (20-31); CHLORIDE LEVEL 105.0 MMOL/L (98-107); CREATININE FOR GFR 1.05 MG/DL (0.55-1.30); GLOMERULAR FILTRATION RATE 58.6 (>45); POTASSIUM SERUM 4.3 MMOL/L (3.5-5.1); SODIUM LEVEL 145.0 MMOL/L (136-145)
[2025-02-16 09:11] LABS: ESTIMATED AVERAGE GLUCOSE 117.0 MG/DL (60-110); FREE T4 1.45 NG/DL (0.89-1.76)
[2025-02-16 09:12] LABS: VITAMIN B12 LEVEL 359.0 PG/ML (211-911)
== END ==
LOC: M LAB 07:52
PROVIDERS: ATTEND Internal Medicine
DX: E03.9 Hypothyroidism, unspecified (principal); R73.01 Impaired fasting glucose; E53.8 Deficiency of other specified B group vitamins

== ENCOUNTER → 2025-02-28 | Outpatient (CLI) | payer MEDICARE, MEDICAID ==
[~2025-02-28] MED LIST changes: +ERGO125013 PO; -VITA500045 PO
== END ==
LOC: M LAB 08:42
PROVIDERS: ATTEND Internal Medicine Gastroenterology
DX: R10.9 Unspecified abdominal pain (principal)

== ENCOUNTER → 2025-03-04 | Outpatient (CLI) | payer MEDICARE, MEDICAID | LOC: M PLAIMG 07:47 | PROVIDERS: ATTEND Pain Medicine Pain Medicine | DX: M47.26 Other spondylosis with radiculopathy, lumbar region (principal); M48.061 Spinal stenosis, lumbar region without neurogenic claudication ==

== ENCOUNTER → 2025-04-20 | Outpatient (CLI) | payer MEDICARE, MEDICAID ==
[2025-04-20 15:30] LABS: PLATELET COUNT, AUTOMATED 378 10^3/uL (150-450)
[2025-04-20 15:39] LABS: INR 0.86
== END ==
LOC: M LAB 14:42
PROVIDERS: ATTEND Nurse Practitioner Family
DX: Z01.812 Encounter for preprocedural laboratory examination (principal); K76.0 Fatty (change of) liver, not elsewhere classified

== ENCOUNTER → 2025-06-28 | Outpatient (CLI) | payer MEDICARE, MEDICAID | LOC: M PLAIMG 15:18 | PROVIDERS: ATTEND Nurse Practitioner Adult Health | DX: R91.8 Other nonspecific abnormal finding of lung field (principal); Z87.891 Personal history of nicotine dependence; R91.1 Solitary pulmonary nodule ==